=== PATIENT | female | born 1950 | race Two or more races ===

== ENCOUNTER 2020-03-13 11:45 | Inpatient (IN) | payer OTHER ==
[~2020-03-13] VITALS: Ht 160 cm; Wt 135.2 kg
[2020-03-13] MEDS ORDERED: SYNTHROID50 MCG PO (15:22)
[2020-03-13] MEDS ORDERED: [UNRECOGNIZED DRUG - OTHER] (15:23)
[2020-03-20] MEDS ORDERED: ROSUVASTATIN CAL5 MG (08:02)
[2020-03-22] MEDS ORDERED: XARELTO10 MG PO (08:01)
[2020-03-22] MEDS ORDERED: INTEGRA PLUS C1 EACH PO (08:01)
[2020-03-22] MEDS ORDERED: OXYC1TAB9 PO (08:01)
== END 2020-03-22 17:01 | DRG 470 ==
LOC: SURG 03-20 05:11 → O/R 03-20 05:11 → SURH 03-20 07:00 → SURG 03-20 16:08
PROVIDERS: ADMIT Orthopaedic Surgery Sports Medicine; ATTEND Orthopaedic Surgery Sports Medicine
PROC: 0SRD0J9 Replacement of Left Knee Joint with Synthetic Substitute, Cemented, Open Approach (ICD-10-PCS; principal; 2020-03-20 07:00)
DX: M17.12 Unilateral primary osteoarthritis, left knee (principal); E03.9 Hypothyroidism, unspecified; E66.01 Morbid (severe) obesity due to excess calories; G47.39 Other sleep apnea

== ENCOUNTER 2020-04-02 20:45 | Emergency (ER) | payer OTHER ==
[~2020-04-02] VITALS: Ht 160 cm; Wt 89.8 kg
[~2020-04-02 20:45] MED LIST: INTEGRA PLUS C1 EACH PO; OXYC1TAB9 PO; ROSUVASTATIN CAL5 MG; SYNTHROID50 MCG PO; XARELTO10 MG PO; [UNRECOGNIZED DRUG - OTHER]
== END 2020-04-03 12:52 | disposition home or self-care (01) ==
LOC: ER 20:45
DX: T84.89XA Other specified complication of internal orthopedic prosthetic devices, implants and grafts, initial encounter (principal); T84.54XA Infection and inflammatory reaction due to internal left knee prosthesis, initial encounter; T84.84XA Pain due to internal orthopedic prosthetic devices, implants and grafts, initial encounter; I82.492 Acute embolism and thrombosis of other specified deep vein of left lower extremity; M17.12 Unilateral primary osteoarthritis, left knee; R60.0 Localized edema; L03.116 Cellulitis of left lower limb; Z96.652 Presence of left artificial knee joint; I73.9 Peripheral vascular disease, unspecified

== ENCOUNTER 2023-06-04 07:15 | Inpatient (IN) | payer OTHER ==
[2023-06-04] MEDS ORDERED: ADULT LOW DOSE81 M1 PO (08:39)
[2023-06-04] MEDS ORDERED: KAPSPARGO SPRIN25 MG PO (08:39)
[2023-06-04] MEDS ORDERED: RECLAST 55 MG/100 M IV (08:40)
[2023-06-04] MEDS ORDERED: ROSUVASTATIN CA10 MG PO (08:40)
[2023-06-04] MEDS ORDERED: FAMOTIDINE 40MG (08:41)
[2023-06-04 10:08] LABS: PROTHROMBIN TIME 10.4 SECONDS (9.0-11.5)
[2023-06-04 10:09] LABS: INR 0.99; PARTIAL THROMBOPLASTIN TIME 29.1 SECONDS (22.0-34.0)
[2023-06-09] MEDS ORDERED: TRANEXAMIC ACID 100MG/1ML (1000MG) AMPUL IV ONE ×3 (07:30→10:45)
[2023-06-09] MEDS ORDERED: CEFAZOLIN SODIUM 1,000 MG VIAL ONE ×2 (07:30→18:03)
[2023-06-09] MEDS ORDERED: KETOROLAC TROMETHAMINE 60 MG VIAL IM ONE ×2 (09:49→10:45)
[2023-06-09] MEDS ORDERED: ISOPROPYL ALCOHOL 30 ML OUNCE TOP ONE (10:45)
[2023-06-09] MEDS ORDERED: CEFAZOLIN SODIUM 1,000 MG VIAL IV ONE (10:45)
[2023-06-09] MEDS ORDERED: VANCOMYCIN HCL 1,000 MG VIAL ONE (11:41)
[2023-06-09] MEDS ORDERED: POVIDONE-IODINE 3 EA MED..SWAB TOP ONE ×2 (11:50→12:15)
[2023-06-09] MEDS ORDERED: VANCOMYCIN HCL 1,000 MG VIAL SPEPROC ONE (12:15)
[2023-06-09] MEDS ORDERED: MORPHINE SULFATE 4 MG/ML VIAL IV ONE (12:15)
[2023-06-09] MEDS ORDERED: GENTAMICIN SULFATE 40 MG/ML VIAL IV SCH (12:39)
[2023-06-09] MEDS ORDERED: SODIUM CHLORIDE 0.45 % 1,000 ML IV SCH (12:45)
[2023-06-09] MEDS ORDERED: MORPHINE SULFATE 4 MG/ML CARTRIDGE IV PRN (12:45)
[2023-06-09] MEDS ORDERED: ONDANSETRON HCL 2 MG/ML VIAL IV PRN (12:45)
[2023-06-09] MEDS ORDERED: MORPHINE SULFATE 2 MG/ML CARTRIDGE IV ONE (12:45)
[2023-06-09 13:47] LABS: HEMATOCRIT 39.4 % (36.0-45.00); RED BLOOD COUNT 4.26 M/uL (4.00-6.00)
[2023-06-09] MEDS ORDERED: GENTAMICIN SULFATE 40 MG/ML VIAL ONE (14:29)
[2023-06-09] MEDS ORDERED: CEFAZOLIN SODIUM 1,000 MG VIAL IV SCH (18:00)
[2023-06-10 05:28] LABS: HEMATOCRIT 39.4 % (36.0-45.00); HEMOGLOBIN 13.4 g/dL (12.0-15.00); MEAN CELL VOLUME 93.1 fL (80.00-100.00); MEAN CORPUSCULAR HEMOGLOBIN 31.7 pg (27.00-32.0); PLATELET COUNT 173 K/uL (150-450); RED BLOOD COUNT 4.24 M/uL (4.00-6.00); RED CELL DISTRIBUTION WIDTH 13.8 % (11.5-14.5)
[2023-06-10] MEDS ORDERED: LEVOTHYROXINE SODIUM 50 MCG TABLET PO SCH (06:00)
[2023-06-10] MEDS ORDERED: OxyCODONE HCL/APAP UD (PERCOCET) PO PRN (08:15)
[2023-06-10] MEDS ORDERED: BACITRACIN 28.35 GM OINT.TUBE TOP SCH (09:00)
[2023-06-10] MEDS ORDERED: IRON FUM,PS/FOLIC/BCOMP,C NO.9 1 CAP CAPSULE PO SCH (09:00)
[2023-06-10] MEDS ORDERED: METOPROLOL SUCCINATE 25 MG TAB.SR.24H PO SCH (09:00)
[2023-06-10] MEDS ORDERED: OxyCODONE HCL ER 10MG TAB (OxyCONTIN) PO SCH (09:00)
[2023-06-10] MEDS ORDERED: SENNA/DOCUSATE SODIUM 1 TAB TABLET PO SCH (09:00)
[2023-06-10] MEDS ORDERED: RIVAROXABAN 10 MG TAB PO SCH (09:00)
[2023-06-10] MEDS ORDERED: FAMOtidine 40 MG TABLET PO SCH (09:00)
[2023-06-11 06:15] LABS: HEMATOCRIT 39.3 % (36.0-45.00); HEMOGLOBIN 13.4 g/dL (12.0-15.00); MEAN CELL VOLUME 93.3 fL (80.00-100.00); MEAN CORPUSCULAR HEMOGLOBIN 31.9 pg (27.00-32.0); MEAN CORPUSCULAR HGB CONC 34.2 g/dl (32.0-36.0); PLATELET COUNT 173 K/uL (150-450); RED BLOOD COUNT 4.21 M/uL (4.00-6.00); RED CELL DISTRIBUTION WIDTH 13.8 % (11.5-14.5)
[2023-06-11] MEDS ORDERED: XARELTO10 MG PO (06:46)
[2023-06-11] MEDS ORDERED: OXYC1TAB9 PO (06:46)
[2023-06-11] MEDS ORDERED: BACTRIM DS TAB1 EACH PO (06:46)
[2023-06-11] MEDS ORDERED: INTEGRA PLUS C1 EACH PO (06:46)
[2023-06-11 12:08] LABS: hav igm Negative (Negative); hcv Non Reactive (Non Reactive); hep b c Negative (Negative)
== END 2023-06-11 17:18 | DRG 470 ==
LOC: O/R 06-09 06:17 → SURG 06-09 06:17
PROVIDERS: ADMIT Orthopaedic Surgery Sports Medicine; ATTEND Orthopaedic Surgery Sports Medicine
PROC: 0SRC0J9 Replacement of Right Knee Joint with Synthetic Substitute, Cemented, Open Approach (ICD-10-PCS; principal; 2023-06-09 10:30)
DX: M17.11 Unilateral primary osteoarthritis, right knee (principal); I10 Essential (primary) hypertension; E03.9 Hypothyroidism, unspecified; E78.5 Hyperlipidemia, unspecified